=== PATIENT | male | born 2000 | race Caucasian/White ===

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

== ENCOUNTER 2023-05-09 12:18 | Emergency (ER) | payer SELFPAY ==
[~2023-05-09] VITALS: Ht 190 cm; Wt 74.0 kg
[2023-05-09 12:20] VITALS: BP 128/83
--- NOTE | 2023-05-09 12:37 | ED Cough/URI ---
General Chief Complaint: Cough/Cold/Flu Symptoms Stated Complaint: HEADACHE | CONGESTION Nursing Triage Note: WOKE UP THIS AM WITH A STUFFY NOSE AND SOA Source: patient Exam Limitations: no limitations History of Present Illness Date Seen by Provider: May 09, 2023 Time Seen by Provider: 12:34 Initial Comments Patient is a 23-year-old male who presents to ED with flulike symptoms. Patient states he woke up around 4 AM feeling short of breath. He reports some substernal chest pain with deep inspiration. Reports a mild cough. Reports nasal congestion sinus pressure and headache over the past 2 days. Few episodes of diarrhea without any vomiting. Associated chills. No known exposure to COVID or flu. Denies taking medication at home. Patient does vape. Denies history of asthma, heart disease. Patient denies abdominal pain, lower leg swelling or bruising, fever, visual changes, unilateral weakness, sore throat, ear pain Allergies and Home Medications Allergies Coded Allergies: No Known Drug Allergies (Unverified , 04/10/10) Patient Home Medication List Home Medication List Reviewed: Yes Review of Systems Review of Systems Constitutional: chills; No diaphoresis; malaise, weakness EENTM: No hearing loss, No ear pain, No blurred vision, No double vision Respiratory: cough, short of breath Cardiovascular: chest pain Gastrointestinal: No abdominal pain; diarrhea; No nausea, No vomiting Genitourinary: No decreased output, No discharge Musculoskeletal: No back pain, No joint pain Skin: No change in color, No change in hair/nails All Other Systems Reviewed Negative Unless Noted: Yes Past Gjineaq-Buuhzz-Zyoonx Hx Patient Social History Tobacco Use?: Yes Substance use?: No Alcohol Use?: No Immunizations Up To Date PED Vaccines UTD: Yes Seasonal Allergies Seasonal Allergies: No Past Medical History Surgeries: Yes (EAR TUBES CHILD AND DENTAL WORK) Ear Surgery Respiratory: No Cardiac: No Neurological: No Genitourinary: No Gastrointestinal: No Musculoskeletal: No Endocrine: No HEENT: Yes (BMT'S; DENTAL SURGERY) Chronic Ear Infection Cancer: No Psychosocial: No Integumentary: No Blood Disorders: No Family Medical History Congenital heart disease 19 MOTHER (cardiomyopathy tachycardia) Family history: Arthritis 19 MOTHER (RA) No Family History of: Abdominal aortic aneurysm Gonzalo's disease Alcoholism Aphasia Cancer Cancer of colon Cataract Chest pain Congestive heart failure Cystic fibrosis Dementia Dysphagia Family history: Allergy Family history: Alzheimer's disease Family history: Asthma Family history: Breast disease Family history: Cardiovascular disease Family history: Coronary thrombosis Family history: Diabetes mellitus Family history: Gastrointestinal disease Family history: Glaucoma Family history: Hypertension Family history: Osteoporosis Family history: Thyroid disorder Headache Hearing loss Heart disease Hereditary disease History of - anemia History of - disorder History of - respiratory disease History of drug abuse Human immunodeficiency virus (HIV) seropositivity Hypercholesterolemia Infertile Kidney disease Malignant neoplasm of lung Myocardial infarction Parkinson's disease Prostate cancer Psychotic disorder Seizure disorder Stroke Tuberculosis Visual impairment 26 VISITS HERE SINCE 10/2005--VARIOUS COMPLAINTS Physical Exam Vital Signs - First Documented 05/09/23 12:20 Temp 36.8 Pulse 76 Resp 16 B/P (MAP) 128/83 (98) Pulse Ox 98 O2 Delivery Room Air Capillary Refill : Less Than 3 Seconds Height: 6'3.00" Weight: 143lbs. oz. 64.178985zg; 20.00 BMI Method:Stated General Appearance: WD/WN, no apparent distress Eyes: Bilateral Eye Normal Inspection, Bilateral Eye PERRL, Bilateral Eye EOMI HEENT: PERRL/EOMI, normal ENT inspection, TMs normal, pharynx normal Neck: non-tender, full range of motion Respiratory: chest non-tender, lungs clear, normal breath sounds, no respiratory distress, no accessory muscle use Cardiovascular: regular rate, rhythm, no edema, no gallop, no JVD Gastrointestinal: normal bowel sounds, non tender, soft, no organomegaly Extremities: normal range of motion, non-tender, normal inspection, no pedal edema 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, no motor/sensory deficits, alert, normal mood/affect, oriented x 3 Skin: normal color, warm/dry Progress/Results/Core Measures Suspected Sepsis SIRS Temperature: Pulse: 76 Respiratory Rate: 16 Blood Pressure 128 /83 Mean: 98 Results/Orders Lab Results Laboratory Tests Test 05/09/23 12:34 Range/Units Influenza Type A (RT-PCR) Not Detected Not Detecte Influenza Type B (RT-PCR) Not Detected Not Detecte SARS-CoV-2 RNA (RT-PCR) Not Detected Not Detecte My Orders Orders - KATHY MAURICE Covid 19 Inhouse Test (05/09/23 12:32) Influenza A And B By Pcr (05/09/23 12:32) Chest 1 View, Ap/Pa Only (05/09/23 12:32) Vital Signs/I&O 05/09/23 12:20 Temp 36.8 Pulse 76 Resp 16 B/P (MAP) 128/83 (98) Pulse Ox 98 O2 Delivery Room Air Capillary Refill : Less Than 3 Seconds Blood Pressure Mean: 98 Departure Communication (PCP) Patient presents ED with URI symptoms. Differential diagnosis viral syndrome, pneumonia, sinusitis. Patient states symptoms started 2 days ago. Exam otherwise benign. No maxillary or frontal sinus tenderness. Oropharynx patent. TMs clear. Lung sounds clear bilateral. Complaining of substernal chest pain with deep inspiration. No known cardiac history. No evidence of wheezing. He is not hypoxic or tachycardic or febrile. Obtain a chest x-ray which did not note any pneumonia, pneumothorax. COVID influenza was ordered which were negative. Patient does not appear toxic or septic. This appears to be more viral. Clinically does not appear cardiac. Discussed conservative treatment with Tylenol and ibuprofen, Mucinex or Sudafed. If any increasing pain in the chest, shortness of breath or fever to return back to ED. Follow-up your PCP in 2 to 3 days for reevaluation. Impression Primary Impression: Upper respiratory infection Disposition: 01 HOME, SELF-CARE Condition: Stable Departure-Patient Inst. Decision time for Depature: 12:56 Referrals: DANITZA RUBIO DO (PCP/Family) Primary Care Physician Patient Instructions: Viral Upper Respiratory Infection, Adult (DC) Add. Discharge Instructions: Recommend Tylenol or ibuprofen for body pains and aches. Sudafed or Mucinex for nasal congestion and sinus pressure. Recommend rest at home. Recommend staying hydrated. If increasing pains, shortness of breath to return back to ED. Follow-up your PCP in 2 to 3 days for reevaluation peer All discharge instructions reviewed with patient and/or family. Voiced understanding. Work/School Note: Work Release Form Date Seen in the Emergency Department: May 09, 2023 Return to Work: May 11, 2023 KATHY MAURICE May 09, 2023 12:37
--- NOTE | 2023-05-09 12:49 | Diagnostic Imaging Report ---
INDICATION: Nasal congestion and shortness of air. COMPARISON: 04/04/2019. FINDINGS: The lungs are clear. The lung volumes are normal. No failure, effusion, or pneumothorax. IMPRESSION: Normal frontal chest. Dictated by: Dictated on workstation # [id number]
== END 2023-05-09 13:08 | disposition home or self-care (01) ==
LOC: EDUNIT# 12:18 → ER 12:21
DX: J06.9 Acute upper respiratory infection, unspecified (principal); F17.290 Nicotine dependence, other tobacco product, uncomplicated; Z20.822 Contact with and (suspected) exposure to COVID-19
CPT/HCPCS: 71045; 87636; 99283

== ENCOUNTER 2023-05-21 17:46 | Emergency (ER) | payer SELFPAY ==
[~2023-05-21] VITALS: Ht 190.5 cm; Wt 77.1 kg
[2023-05-21 17:58] VITALS: BP 124/73
[2023-05-21] MEDS ORDERED: AMOX500T2 PO (18:24)
--- NOTE | 2023-05-21 18:24 | ED EENT ---
History of Present Illness General Chief Complaint: Oral/Throat Problems Stated Complaint: SORE THROAT Nursing Triage Note: PT AMB TO ED BY POV WITH C/O SORE THROAT AND CHRISTENSEN BEGINNING YESTERDAY, MUCH WORSE TODAY. DENIES FEVER. Source: patient Exam Limitations: no limitations (KATHY MAURICE) History of Present Illness Date Seen by Provider: May 21, 2023 Time Seen by Provider: 18:21 Initial Comments Patient is a 23-year-old male who presents ED with sore throat difficulty swallowing over the past 2 days. Denies of any fever, chills, nausea vomit, diarrhea. History of strep throat. States he tested negative for COVID at home with a test. Reports some swollen lymph nodes. Patient reports a mild headache. Denies any nausea, vomit, diarrhea, cough, shortness of breath or chest pain. Denies any rash (KATHY MAURICE) Allergies and Home Medications Allergies Coded Allergies: No Known Drug Allergies (Unverified , 04/10/10) Patient Home Medication List Home Medication List Reviewed: Yes (KATHY MAURICE) Amoxicillin (Amoxicillin) 500 Mg Tablet, 500 MG PO BID Prescribed by: EMMA NOVA on 05/21/231823 Review of Systems Review of Systems Constitutional: No chills, No diaphoresis, No malaise, No weakness, No other Eyes: Denies Blurred Vision, Denies Drainage, Denies Decreased Acuity Ears: Denies Dizziness, Denies Pain Nose: denies clots, denies congestion, denies bloody discharge, denies clear discharge, denies previous injury Mouth: denies clots, denies bloody discharge, denies clear discharge Throat: pain, swelling Respiratory: No cough Cardiovascular: No chest pain Gastrointestinal: No abdominal pain, No diarrhea, No nausea, No vomiting Musculoskeletal: No back pain, No joint pain, No joint swelling Skin: No change in color, No change in hair/nails (KATHY MAURICE) All Other Systems Reviewed Negative Unless Noted: Yes (KATHY MAURICE) Past Eufgybu-Tocivz-Gwfhxc Hx Patient Social History Tobacco Use?: No Use of E-Cig and/or Vaping dev: Yes E-Cig or Vaping type used: Nicotine Use of E-Cig and/or Vaping Jose E: Current Everyday User Substance use?: No Alcohol Use?: Yes Alcohol Frequency: Once in a while Pt feels they are or have been: No (KATHY MAURICE) Immunizations Up To Date PED Vaccines UTD: Yes Influenza Vaccine Up-to-Date: No; Not Current (KATHY MAURICE) Seasonal Allergies Seasonal Allergies: No (KATHY MAURICE) Past Medical History Surgery/Hospitalization HX: DENIES Surgeries: Yes (EAR TUBES CHILD AND DENTAL WORK) Ear Surgery Respiratory: No Cardiac: No Neurological: No Genitourinary: No Gastrointestinal: No Musculoskeletal: No Endocrine: No HEENT: Yes (BMT'S; DENTAL SURGERY) Chronic Ear Infection Cancer: No Psychosocial: No Integumentary: No Blood Disorders: No (KATHY MAURICE) Family Medical History Congenital heart disease 19 MOTHER (cardiomyopathy tachycardia) Family history: Arthritis 19 MOTHER (RA) No Family History of: Abdominal aortic aneurysm Tyrrell's disease Alcoholism Aphasia Cancer Cancer of colon Cataract Chest pain Congestive heart failure Cystic fibrosis Dementia Dysphagia Family history: Allergy Family history: Alzheimer's disease Family history: Asthma Family history: Breast disease Family history: Cardiovascular disease Family history: Coronary thrombosis Family history: Diabetes mellitus Family history: Gastrointestinal disease Family history: Glaucoma Family history: Hypertension Family history: Osteoporosis Family history: Thyroid disorder Headache Hearing loss Heart disease Hereditary disease History of - anemia History of - disorder History of - respiratory disease History of drug abuse Human immunodeficiency virus (HIV) seropositivity Hypercholesterolemia Infertile Kidney disease Malignant neoplasm of lung Myocardial infarction Parkinson's disease Prostate cancer Psychotic disorder Seizure disorder Stroke Tuberculosis Visual impairment 26 VISITS HERE SINCE 10/2005--VARIOUS COMPLAINTS (KATHY MAURICE) Physical Exam Vital Signs Vital Signs - First Documented 05/21/23 17:58 Temp 37.1 Pulse 72 Resp 16 B/P (MAP) 124/73 (90) Pulse Ox 98 O2 Delivery Room Air (RASHMI CAMPBELL MD) Height, Weight, BMI Height: 6'3.00" Weight: 143lbs. oz. 64.081286qw; 21.00 BMI Method:Stated General Appearance: WD/WN, no apparent distress Eyes: bilateral eye normal inspection, bilateral eye PERRL, bilateral eye EOMI Ears: bilateral ear auricle normal, bilateral ear canal normal, bilateral ear TM normal Nose: normal inspection Mouth/Throat: normal mouth inspection, other (Oropharynx with swelling and erythema. 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 Tested negative at home. History of strep throat. Denies runny nose, ear pain, cough, shortness of breath chest pain or abdominal pain. Vital signs stable. Oropharynx patent with erythema, swelling and without exudate. No uvula deviation. Tolerating secretions. No evidence of Ziggy angina. No evidence of stridor. Concern for strep. Patient refused swabs. He did have a negative COVID. Will discharge with amoxicillin concerning for strep as patient refused swabs. Recommend Tylenol and ibuprofen. Gargling salt water. If any worsening symptoms return back to ED such as difficulty swallowing, difficulty breathing. (KATHY MAURICE) Impression Primary Impression: Pharyngitis Disposition: HOME, SELF-CARE Condition: Stable Departure-Patient Inst. Decision time for Depature: 18:22 (KATHY MAURICE) Referrals: DANITZA RUBIO DO (PCP/Family) Primary Care Physician Patient Instructions: Sore Throat, Adult (DC) Scripts Amoxicillin (Amoxicillin) 500 Mg Tablet 500 MG PO BID for 10 Days, #20 TAB Prov: KATHY MAURICE 05/21/23 Work/School Note: Work Release Form Date Seen in the Emergency Department: May 21, 2023 Return to Work: May 24, 2023 ATTENDING PHYSICIAN NOTE: I was physically present as attending physician in the emergency department d uring the care of this patient, but I was not directly involved in the decision making or delivery of care for this patient. (RASHMI CAMPBELL MD) KATHY MAURICE May 21, 2023 18:24 RASHMI CAMPBELL MD May 22, 2023 03:31
== END 2023-05-21 18:26 | disposition home or self-care (01) ==
LOC: EDUNIT# 17:46 → ER 17:48
DX: J02.9 Acute pharyngitis, unspecified (principal); F17.290 Nicotine dependence, other tobacco product, uncomplicated
CPT/HCPCS: 99283

== ENCOUNTER 2023-08-01 15:27 | Emergency (ER) | payer SELFPAY ==
[~2023-08-01] VITALS: Ht 195 cm; Wt 77.0 kg
[~2023-08-01 15:27] MED LIST changes: +AMOX500T2 PO
--- NOTE | 2023-08-01 15:32 | ED General ---
General Chief Complaint: Overdose Stated Complaint: OVERDOSE Source of Information: Patient, EMS Exam Limitations: No Limitations History of Present Illness Date Seen by Provider: Aug 01, 2023 Time Seen by Provider: 15:23 Initial Comments 23-year-old male presents the emergency department today after his mom called EMS when she found him at home sleeping next to a bottle of empty pills. He states he had a fight with his significant other today and took 10 12 mg melatonin tablets trying to sleep. He denies wanting to harm himself, just states he was trying to get some sleep. He denies any history of suicide attempts. At present he just complains of being tired. All other systems reviewed and negative except documented per HPI. Voice recognition software was used to help create this chart Allergies and Home Medications Allergies Coded Allergies: No Known Drug Allergies (Unverified , 04/10/10) Patient Home Medication List Home Medication List Reviewed: Yes Amoxicillin (Amoxicillin) 500 Mg Tablet, 500 MG PO BID Prescribed by: EMMA NOVA on 05/21/23 1824 Review of Systems Review of Systems Constitutional: see HPI Past Eqyhyqy-Oyogik-Oucfzv Hx Patient Social History Tobacco Use?: No Use of E-Cig and/or Vaping dev: Yes E-Cig or Vaping type used: Nicotine Substance use?: No Alcohol Use?: No Immunizations Up To Date PED Vaccines UTD: Yes First/Initial COVID19 Vaccinat: N/A Seasonal Allergies Seasonal Allergies: No Past Medical History Surgery/Hospitalization HX: DENIES Surgeries: Yes (EAR TUBES CHILD AND DENTAL WORK) Ear Surgery Respiratory: No Cardiac: No Neurological: No Genitourinary: No Gastrointestinal: No Musculoskeletal: No Endocrine: No HEENT: Yes (BMT'S; DENTAL SURGERY) Chronic Ear Infection Cancer: No Psychosocial: No Integumentary: No Blood Disorders: No Family Medical History Congenital heart disease 19 MOTHER (cardiomyopathy tachycardia) Family history: Arthritis 19 MOTHER (RA) No Family History of: Abdominal aortic aneurysm Gonzalo's disease Alcoholism Aphasia Cancer Cancer of colon Cataract Chest pain Congestive heart failure Cystic fibrosis Dementia Dysphagia Family history: Allergy Family history: Alzheimer's disease Family history: Asthma Family history: Breast disease Family history: Cardiovascular disease Family history: Coronary thrombosis Family history: Diabetes mellitus Family history: Gastrointestinal disease Family history: Glaucoma Family history: Hypertension Family history: Osteoporosis Family history: Thyroid disorder Headache Hearing loss Heart disease Hereditary disease History of - anemia History of - disorder History of - respiratory disease History of drug abuse Human immunodeficiency virus (HIV) seropositivity Hypercholesterolemia Infertile Kidney disease Malignant neoplasm of lung Myocardial infarction Parkinson's disease Prostate cancer Psychotic disorder Seizure disorder Stroke Tuberculosis Visual impairment 26 VISITS HERE SINCE 10/2005--VARIOUS COMPLAINTS Physical Exam Vital Signs Vital Signs - First Documented 08/01/23 15:32 Temp 36.9 Pulse 88 Resp 18 B/P (MAP) 119/84 (96) Pulse Ox 97 Capillary Refill : Height, Weight, BMI Height: 6'3.00" Weight: 143lbs. oz. 64.691891lm; 21.00 BMI Method:Stated General Appearance: No Apparent Distress, WD/WN HEENT: PERRL/EOMI, Normal ENT Inspection, Pharynx Normal Neck: Normal Inspection, Non Tender, Supple Respiratory: Chest Non Tender, Lungs Clear, Normal Breath Sounds, No Accessory Muscle Use, No Respiratory Distress Cardiovascular: Regular Rate, Rhythm, No Murmur, Normal Peripheral Pulses Gastrointestinal: Normal Bowel Sounds, No Organomegaly, Non Tender, Soft Extremity: Normal Capillary Refill, Normal Inspection, Normal Range of Motion, Non Tender Neurologic/Psychiatric: Alert, Oriented x3, No Motor/Sensory Deficits, Normal Mood/Affect, rn hemo dialysis II-XII Norm as Tested Skin: Normal Color, Warm/Dry Progress/Results/Core Measures Suspected Sepsis SIRS Temperature: Pulse: Respiratory Rate: Blood Pressure / Mean: Results/Orders Vital Signs/I&O 08/01/23 15:32 Temp 36.9 Pulse 88 Resp 18 B/P (MAP) 119/84 (96) Pulse Ox 97 Capillary Refill : Departure Impression Primary Impression: Drug overdose Qualified Codes: T50.901A - Poisoning by unspecified drugs, medicaments and biological substances, accidental (unintentional), initial encounter Disposition: 01 HOME, SELF-CARE Condition: Critical Departure-Patient Inst. Referrals: DANITZA RUBIO DO (PCP/Family) Primary Care Physician Add. Discharge Instructions: Increase your fluids and rest. Return to the emergency department for any severe concerns. All discharge instructions reviewed with patient and/or family. Voiced understanding. MARCY CLARK DO Aug 01, 2023 15:32
[2023-08-01 16:40] VITALS: BP 122/86
== END 2023-08-01 16:40 | disposition home or self-care (01) ==
LOC: EDUNIT# 15:27 → ER 15:28
DX: T50.991A Poisoning by other drugs, medicaments and biological substances, accidental (unintentional), initial encounter (principal); F17.290 Nicotine dependence, other tobacco product, uncomplicated
CPT/HCPCS: 99283